=== PATIENT | female | born 1990 | race Two or more races ===

== ENCOUNTER 2021-06-24 21:35 | Emergency (ER) | payer MEDICAID, OTHER ==
[~2021-06-24] VITALS: Ht 167.6 cm; Wt 80.0 kg
--- NOTE | 2021-06-24 22:04 | NUR ---
pt came into ed today for n/v and abdominal pain starting today, pt reports that she has been throwing up bright red blood, feeling weak and shaky. Patient is resting comfortably in bed. Bed in lowest, rails engaged, call light on lap. provided warm blanket for comfort, blood pressure is elevated. SO at bs. WCTM.
--- NOTE | 2021-06-24 23:02 | NUR ---
PT ASSISTED BACK TO RESTROOM AT THIS TIME, BACK IN MICHELLE, JAMES, PT IS CRYING D/T ABDOMINAL DISCOMFORT, AWAITING NEW ORDERS. PROVIDED HEATER FOR COMFORT ,ALVIN.
[2021-06-24] MEDS ORDERED: MORPHINE SULFATE 4 MG/ML, 1ML ONE ×2 (23:14→23:31)
[2021-06-24] MEDS ORDERED: ONDANSETRON 2MG/ML, 2ML ONE (23:14)
[2021-06-24] MEDS: MORPHINE SULFATE 4 MG/ML, 1ML IVPush PRN ×2 (23:16→23:33)
--- NOTE | 2021-06-24 23:20 | NUR ---
PT MEDICATED PER NOV, NAD, NO CHANGE IN CONDITION AT THIS TIME. WCTM.
[2021-06-24] MEDS ORDERED: SODIUM CHLORIDE 0.9% 1,000ML IVBOLUS ONE (23:30)
[2021-06-24] MEDS ORDERED: ONDANSETRON 2MG/ML, 2ML IVPush ONE (23:30)
[2021-06-24 23:42] LABS: BASOPHILS % (AUTO) 1 % (0-1); EOSINOPHILS % (AUTO) 0 % (1-7); LYMPHOCYTES % (AUTO) 12 % (22-44); MEAN CORPUSCULAR HEMOGLOBIN 33.9 pg (27.0-34.8); MEAN CORPUSCULAR HGB CONC 34.3 g/dL (32.4-35.8); MEAN PLATELET VOLUME 8.2 fL (7.4-10.4); MONOCYTES % (AUTO) 7 % (2-9); NEUTROPHILS % (AUTO) 81 % (42-75); PLATELET COUNT 320 x10^3/uL (130-400); RED BLOOD COUNT 4.45 x10^6/uL (3.82-5.3); RED CELL DISTRIBUTION WIDTH 13.1 % (9.6-15.2)
[2021-06-24 23:55] LABS: ALBUMIN 4.1 g/dL (3.4-5.0); ANION GAP 13 mmol/L (5-15); CALCIUM 10.4 mg/dL (8.5-10.1); CHLORIDE 101 mmol/L (98-107)
[2021-06-25 00:01] LABS: ALANINE AMINOTRANSFERASE 24 U/L (12-78); ALKALINE PHOSPHATASE 104 U/L (45-117); BILIRUBIN,TOTAL 1.3 mg/dL (0.2-1.0); CREATININE 0.81 mg/dL (0.55-1.02); TOTAL PROTEIN 8.6 g/dL (6.4-8.2)
[2021-06-25 00:16] LABS: MICROSCOPIC INDICATED
--- NOTE | 2021-06-25 00:20 | NUR ---
Patient is resting comfortably in bed. Bed in lowest, rails engaged, call light on lap. NAD, APPEARS MORE COMFORTABLE AT THIS TIME, WCTM.
[2021-06-25] MEDS ORDERED: POTASSIUM CHLORIDE 20 MEQ TAB.ER.PRT PO ONE (01:00)
[2021-06-25] MEDS ORDERED: POTASSIUM CHLORIDE 20 MEQ TAB.ER.PRT ONE (01:09)
[2021-06-25 01:17] VITALS: BP 148/98
[2021-06-25] MEDS ORDERED: ONDANSETRON ODT 4 MG ONE (01:28)
[2021-06-25] MEDS ORDERED: ACETAMINOPHEN 500 MG TABLET ONE (01:28)
--- NOTE | 2021-06-25 01:40 | NUR ---
Patient/Caregiver given discharge instructions and they have confirmed that they understand the instructions. Patient ambulatory with steady gait. NAD, all questions answered appropriately, denies additional needs at this time. No personal belongings left in room after discharge.
== END 2021-06-25 01:41 | disposition home or self-care (01) ==
LOC: ED 23:59
DX: R10.13 Epigastric pain (principal); R11.2 Nausea with vomiting, unspecified; R19.7 Diarrhea, unspecified; F17.200 Nicotine dependence, unspecified, uncomplicated
CPT/HCPCS: 36415; 76700; 80053; 81001; 83690; 84703; 85025; 87086; 96361; 96374; 96375; 99285; J2270; J2405; J7030